=== PATIENT | female | born 1965 | race Asian ===

== ENCOUNTER 2019-04-30 20:20 | Inpatient (IN) | payer OTHER ==
[~2019-04-30] VITALS: Ht 152.4 cm; Wt 53.7 kg
[2019-04-30 20:26] VITALS: Ht 152.4 cm; Wt 53.7 kg
--- NOTE | 2019-04-30 20:40 | NUR ---
PT ARRIVED TO ED VIA AMBULANCE FOR ALOC. PER MEDICS "CELESTEMIGUEL" CALLED 911 FOR PT BEING "CONFUSED AND ACTING WEIRD". PT ON 4 POINT RESTRAINTS WHEN ARRIVED TO ED, PER EMS PT UNCOOPERATIVE AND ATTEMPTING TO GET OFF GURNEY. PT ANSWERING SOME QUESTIONS APPROPRIATELY BUT REFUSES TO ANSWER OTHERS. PT SPEECH IS CLEAR BUT IS SLOW TO RESPOND TO QUESTIONS. PT ATTEMPTING TO GET OUT OF BED AND IS ATTEMPTING TO HIT ED STAFF WHEN TAKING VITALS. PER DR GARNICA PT PLACED ON BILATERAL WRIST SOFT RESTRAINTS FOR PT SAFETY. PT CONTINUES TO PULL AT RESTRAINTS AND STATE "HOW LONG DO I HAVE THESE" AND "CAN YOU JUST TAKE THEM OFF". PT EDUCATED ON NEED FOR RESTRAINTS AT THIS TIME. PT CONTINUES TO REPEAT THOSE PHRASES. CM AND [address] PT BREATHIGN EVEN AND UNLABORED. PT REMAINS UNCOOPERATIVE AT THIS TIME. MSE COMPLETED BY MD GARNICA. WILL CONTINUE TO MONITOR.
--- NOTE | 2019-04-30 20:51 | NUR ---
PT MEDICATED PER MD ORDERS WITH ASSISTANCE BY ALEENA WILLSON. PT CONTINUES TO PULL AT RESTRAINTS AND ATTEMPTS TO GET OUT OF BED. WILL CONTINUE TO MONITOR.
[2019-04-30 21:29] LABS: BASOPHIL % 0.5 % (0-2); PLATELET COUNT 246 x10^3mcL (130-400)
--- NOTE | 2019-04-30 21:32 | NUR ---
EKG IN PROGRESS BY PAULINA EMT
[2019-04-30 21:34] LABS: RED CELL DISTRIBUTION WIDTH 17.7 % (11.5-14.5)
[2019-04-30 21:48] LABS: ALBUMIN 3.6 g/dL (3.4-5.0); ALKALINE PHOSPHATASE 92 U/L (46-116); ALT/SGPT 34 U/L (14-59); AST/SGOT 19 U/L (15-37); BILIRUBIN TOTAL 1.86 mg/dL (0.20-1.00); CALCIUM 8.6 mg/dL (8.5-10.1); CARBON DIOXIDE 30.8 mmol/L (21-32); CHLORIDE SERUM 110 mmol/L (98-107); CREATININE SERUM 0.5 mg/dL (0.6-1.0); GFR1 > 60 mL/min; GLUCOSE SERUM 83 mg/dL (74-106); SODIUM SERUM 148 mmol/L (136-145); TOTAL PROTEIN, SERUM 6.9 g/dL (6.4-8.2)
[2019-04-30 21:50] LABS: POTASSIUM SERUM 2.3 mmol/L (3.5-5.1)
--- NOTE | 2019-04-30 21:57 | NUR ---
PT TO CT VIA [facility].
--- NOTE | 2019-04-30 22:03 | NUR ---
PT BACK TO ROOM VIA GURNEY. PT IS SLEEPING BUT AROUSABLE. CM AND [address] SOFT RESTRAINTS REMAIN ON FOR PT SAFETY. BED IN LOWEST POSITION. ABLE TO VISUALIZE PT, CURTAIN OPEN. WILL CONTINUE TO MONITOR.
--- NOTE | 2019-04-30 23:40 | NUR ---
RESTRAINTS REMOVED AT THIS TIME. PT SLEEPING ON GURNEY IN NAD. CM AND [address] IV FLUIDS RUNNING AT ORDERED RATE. WILL CONTINUE TO MONITOR. BREATHING EVEN AND UNLABORED.
[2019-05-01] MEDS ORDERED: METHIMAZOLE5 MG PO (01:22)
[2019-05-01] MEDS ORDERED: DEXAMETHASONE4 MG PO (01:22)
[2019-05-01] MEDS ORDERED: KEPPRA500 MG PO (01:22)
[2019-05-01] MEDS ORDERED: TAPAZOLE5 MG PO (01:23)
--- NOTE | 2019-05-01 01:23 | NUR ---
PT AROUSABLE TO DEEP TACTILE STIMULI. PT ROLLS OVER AND GOES TO SLEEP AFTER STIMULATION STOPS. CM AND [address] BREATHING EVEN AND UNLABORED. IV FLUIDS RUNNING AT ORDERED RATE. WILL CONTINUE TO MONITOR
--- NOTE | 2019-05-01 02:04 | NUR ---
REPORT CALLED TO SAMINA WILLSON.
--- NOTE | 2019-05-01 02:14 | NUR ---
PT TRANSFERED TO TELE AT THIS TIME IN NAD. PT OPENING EYES TO TACTILE STIMULI AND ABLE TO ANSWER YES TO QUESTIONS. PT BREATHING EVEN AND UNLABORED. RN MAGDALENA AT BEDSIDE TO ASSUME CARE OF PT. IV FLUIDS ENDORSED TO SAMINA WILLSON. PT TRANSPORTED VIA GURNEY BY MYSELF AND EMT PAULINA. PT ASSISTED ONTO GURNEY BY ED AND TELE STAFF . HUMAN SERVICES WORKER AND RN AT BEDSIDE.
--- NOTE | 2019-05-01 02:20 | NUR ---
PT RECEIVED FROM ER VIA [employer] ACCOMPANIED BY HVAC FIELD SERVICE TECHNICIAN AND EMT TECH. PT DROWSY BUT AROUSABLE TO NAME. KNOWS HER NAME AND WHERE SHE IS AT. VS TAKEN. IV SITE ON RT F/A NO S/S INFILTRATION, IVF NS WITH 40MEQ KCL INFUSING WELL AT 100CC/HR FR ER. TELE BOX #24 APPLIED AND STUCCO MASON SHOWS SR WITH HR 71/MIN. RAISSA ALL EXTREMITIES IN BED. CALL LIGHT WITHIN REACHED. PT ORIENTED TO SURROUNDINGS. BED IN LOW POSITION AND LOCKED. BED ALARM ON.
[2019-05-01 02:22] LABS: FREE T4 1.43 ng/dL (0.76-1.46); T4(THYROXINE) 10.7 ug/dL (4.7-13.3)
--- NOTE | 2019-05-01 02:58 | NUR ---
PT IS DROWSY BUT AROUSBLE. NO SIGN OF DISTRESS NOTED. TELE #24, NSR. DENIES ANY CHEST PAIN OR PRESSURE. PULSES ARE PRESENT. NO EDEMA NOTED. LUNGS ARE CLEAR IN ALL FEILDS. ON RA, DENIES ANY SOB. NO SIGN OF RESP DISTRESS. PT AMBULATED TO THE BATHROOM WITH ASSISTANCE. URINE WAS COLLECTED. IV ON RAC INTACT AND PATENT. SECURED IN PLACE. NS WITH 40MEQ K+ RUNNING AT 100ML/HR. DENIES PAIN AT SITE. BED IS AT LOWEST SETTING. CALL LIGHT WITHIN REACH. WILL CONTINUE TO MONITOR.
[2019-05-01 03:02] VITALS: BP 125/71
[2019-05-01 03:07] LABS: T3 TOTAL 1.32 ng/mL
--- NOTE | 2019-05-01 03:30 | NUR ---
PAGED MD MÉNDEZ ABOUT THE ONE TIME ORDER FOR 40MEQ OF POTASSIUM. PT IS ALREADY RUNNING K+ AT THIS TIME AND WANT TO CLARIFY WITH . AWAITING TO RETURN CALL.
--- NOTE | 2019-05-01 03:49 | NUR ---
PAGEIsaac MÉNDEZ. AWAITING RESPOND. CHARGE NURSE AWARE.
[2019-05-01 03:51] LABS: UA SPECIFIC GRAVITY >=1.030 (1.005-1.035); microscopic required? YES; urine erythrocyte NEGATIVE (NEGATIVE)
--- NOTE | 2019-05-01 03:52 | NUR ---
MD MÉNDEZ TO D/C KCL ONE TIME ORDER AND WILL AWAIT AM LABS. TO INPUT ORDERS.
[2019-05-01 04:01] LABS: AMPHETAMINE QUAL UR NONE DETECTED (See below)
[2019-05-01 04:14] VITALS: BP 114/57
--- NOTE | 2019-05-01 06:35 | NUR ---
PT TRANSFERED TO 252A.
--- NOTE | 2019-05-01 06:59 | NUR ---
PT IS RESTING IN BED. PT IS REFUSING TO SIGN CONSENT FOR INFORMATION RELEASE. PT STATES SHE IS SIGNING A DOCUMENT TO KEEP HER HERE AGAINST HER WILL. CHARGE NURSE ALSO SPOKE TO PT. AND REFUSED WELL. PT IS REFUSING K RIDER THIS AM WELL. BED IS AT LOWEST SETTING. CALL LIGHT WITHIN REACH. WILL ENDORSE TO AM NURSE.
[2019-05-01 07:34] LABS: CALCIUM 8.9 mg/dL (8.5-10.1); CARBON DIOXIDE 29.7 mmol/L (21-32); CHLORIDE SERUM 113 mmol/L (98-107); CREATININE SERUM 0.6 mg/dL (0.6-1.0); GFR1 > 60 mL/min; GLUCOSE SERUM 83 mg/dL (74-106); MAGNESIUM 2.4 mg/dL (1.8-2.4); PHOSPHOROUS 2.8 mg/dL (2.5-4.9); SODIUM SERUM 151 mmol/L (136-145)
[2019-05-01 07:39] LABS: ALBUMIN 3.4 g/dL (3.4-5.0); BILIRUBIN DIRECT 0.33 mg/dL (0.0-0.2); BILIRUBIN TOTAL 1.9 mg/dL (0.20-1.00); TOTAL PROTEIN, SERUM 6.2 g/dL (6.4-8.2)
[2019-05-01 07:46] LABS: BASOPHIL % 0.5 % (0-2); PLATELET COUNT 241 x10^3mcL (130-400)
[2019-05-01 07:48] LABS: POTASSIUM SERUM 2.9 mmol/L (3.5-5.1)
[2019-05-01 07:51] LABS: RED CELL DISTRIBUTION WIDTH 18.2 % (11.5-14.5)
--- NOTE | 2019-05-01 07:53 | NUR ---
RECEIVED REPORT FROM CHRISTY WILLSON. PATIENT RESTING COMFORTABLY IN BED WITH SITTER AT BEDSIDE. ALL NEEDS MET. TELE # [address]. PT DENIES CHEST PAIN. PT ON ROOM AIR. NO C/O SOB AND NO DISTRESS NOTED. IV TO RAC IS PATENT AND INFUSING NS W/ 40 MEQ KCL @ 100 ML/HR. NO REDNESS OR PAIN. ALL QUESTIONS AND CONCERNS ADDRESSED.
[2019-05-01 08:50] VITALS: BP 113/94
--- NOTE | 2019-05-01 10:58 | NUR ---
DR JOHNSTON PAGED AND PAGE GATED TO INFORM THAT PT IS REFUSING IV ACCESS AND REFUSED ALL PO MEDS THIS MORNING. Christy FAYE UNABLE TO COMPLETE.
--- NOTE | 2019-05-01 13:06 | NUR ---
SPOKE WITH DR KELLY TO NOTIFY THAT PATIENT IS REFUSING ALL CARE. IV ACCESS DENIED AND PO MEDICATION DENIED. PT K+ IS 2.9 THIS MORNING. PT IS NPO FOR US ABDOMEN. STATED "IF SHE REFUSES SHE REFUSES. WE JUST HAVE TO TRY, AND WAIT FOR SS TOMORROW."
--- NOTE | 2019-05-01 14:18 | NUR ---
RECEIVED REPORT FROM ANAMIKA GUPTA, WILL RESUME CARE FOR PATIENT. PATIENT IN BED, WITHDRAWN BEHAVIOR. INTRODUCTION MADE. PATIENT ASKING IF SHE CAN GO HOME. INFORMED HER NO DISCHARGE ORDER AND PATIENT STILL NEEDS TO HAVE ULTRASOUND DONE AND RESUME K RIDER INFUSION. PATIENT REFUSING D/T PAIN. MILD SWELLING NOTED TO SL IV SITE RAC, OFFERED TO REMOVE AND PLACE NEW IV, PATIENT REFUSED. INFORMED HER OF RISKS/BENEFITS OF REFUSAL, INFORMED HER OF POTASSIUM LEVEL AND THE SIGNFICANCE OF KRIDER. PATIENT REFUSED, WANTS TO GO HOME SHE IS CONCERNED OF LOSING HER HOME BECAUSE SHE IS HERE. INFORMED HER OF PRESS BRAKE OPERATOR, REFUSING ASSISTANCE FROM THEM. "I JUST NEED TO GO". INFORMED HER I WILL BE PAGING THE DOCTOR FOR HER.
--- NOTE | 2019-05-01 15:25 | NUR ---
PATIENT AT THE STATION WANTS TO LEAVE, DEMANDING TO SEE THE DOCTOR. DR KELLY PAGEIsaac AND MADE AWARE, ALSO TOLD HIM PATIENT IS , HE IS NOT IN THE HOSPITAL AT THE MOMENT, WE CAN HAVE RESIDENTS SPEAK WITH HER IN PERSON. DR PRESTON DE LEON. PATIENT REFUSING TO WAIT IN ROOM. SITTING BY THE STATION.
--- NOTE | 2019-05-01 15:30 | NUR ---
DR PRESTON DE LEON.
--- NOTE | 2019-05-01 16:05 | NUR ---
DR JOHNSTNO PAGED AGAIN. PATIENT PERSISTENT ON LEAVING, NOT COOPERATIVE W/ PLAN OF CARE. INFORMS HER OF UNSAFE DISCHARGE, "IT IS SAFE". REMINDED HER THE DAUGHTER WILL BE COMING THIS EVENING, PATIENT NOT WILLING TO WAIT. SISTER IN LAW HERE, PATIENT NOT COOPERATIVE W/ SISTER IN LAW.
--- NOTE | 2019-05-01 17:15 | NUR ---
PATIENT REFUSING TO WAIT FOR DAUGHTER, ATTEMPTING TO LEAVE THROUGH ELEVATOR IV STILL IN PLACE. ALLOWED ME TO REMOVE IV. SISTER IN LAW ATTEMPTING TO PERSUADE HER TO STAY, NOT COOPERATING. PATIENT STATES "I NEED TO GO, JUST PLEASE, PLEASE. I JUST NEED TO GO. I DONT WANT TO LOSE MY HOUSE I NEED TO CHECK." OFFERED TO THE PATIENT IF WE CAN GET AHOLD OF A RELATIVE TO CHECK ON HER HOUSE, PATIENT REFUSING "NO I NEED TO GO". REAASSESSED ORIENTATION, PATIENT ORIENTED X3. REFUSED TO SIGN AMA FORM. OFFERED TO CALL A TAXI/CAB, PATIENT REFUSED. SECURITY AT STATION. PATIENT WANDERING AROUND STATION SITTING AT STATION CHAIRS AND WASHING HANDS AT STATION SINK. "I JUST NEED TO GO". SISTER IN LAW OKAY TO TAKE PATIENT HOME. BEFORE PATIENT LEFT UNIT VIA WHEELCHAIR, SHE'S STATES "WHATS IN THE BOOK, YOU PUT SOMETHING IN THE BOOK" (INDICATING A CHART ON STATION THAT IS NOT HERS), PATIENT REASSURED. PATIENT REFUSING TO REMOVE ARM BAND. PATIENT LEFT VIA WHEELCHAIR ACCOMPANIED BY SISTER IN LAW AND ROAD ROLLER OPERATOR HOT MIX. DR ROBIN DE LEON.
== END 2019-05-01 17:15 | disposition left against medical advice (07) | DRG 640 ==
LOC: ED 20:20 → DU 05-01 00:41
PROVIDERS: Emergency Medicine; ADMIT Family Medicine
DX: E87.6 Hypokalemia (principal); G93.41 Metabolic encephalopathy; Z60.2 Problems related to living alone; E87.0 Hyperosmolality and hypernatremia; E86.1 Hypovolemia; E78.5 Hyperlipidemia, unspecified; Z53.21 Procedure and treatment not carried out due to patient leaving prior to being seen by health care provider
CPT/HCPCS: 84439; G0378; G0480; J1630; J2060; J3480; J7040; J8540; Q0092